=== PATIENT | male | born 1990 | race Caucasian/White ===

== ENCOUNTER 2019-09-15 19:26 | Emergency (ER) | payer OTHER ==
[~2019-09-15] VITALS: Ht 180.3 cm; Wt 88.5 kg
[2019-09-15 19:35] VITALS: BP 120/89
--- NOTE | 2019-09-15 19:35 | NUR ---
ED Nurse Note: Pt walked into ED from home for c/o laceration to R index finger. Pt states he was using his pocket knife and when he went to close it, it cut his finger. Pt does not want to harm himself. Pt is aaox4, breathing is normal and unlabored, NAD. Pt reports pain to the finger. Laceration to R index finger noted, no active bleeding.
[2019-09-15] MEDS ORDERED: Tetanus/Diptheria/Pertussis IM ONE (19:45)
--- NOTE | 2019-09-15 20:30 | NUR ---
ED Nurse Note: ERMD bedside for lac repair.
[2019-09-15] MEDS ORDERED: BACITRACIN15 GM TOPIC (20:53)
[2019-09-15 21:00] VITALS: BP 125/92
[2019-09-15] MEDS ORDERED: Bacitracin Oint UD TOPIC ONE (21:00)
--- NOTE | 2019-09-15 21:00 | NUR ---
ER DISCHARGE NOTE: Patient is cleared to be discharged per ERMD, pt is aox4, on room air, with stable vital signs. pt was given dc and prescription instructions, pt was able to verbalize understanding, pt id band removed. pt is able to ambulate with steady gait. pt took all belongings.
--- NOTE | 2019-09-19 07:27 | Emergency Room Report ---
History of Present Illness General Chief Complaint: Laceration Source: Patient Present Illness HPI 29-year-old male presents the ED with laceration to finger. Happened today while using a pocket knife.. Tetanus unknown. Denies pain. States bleeding controlled with pressure. Denies any other injuries. No other aggravating relieving factors. Denies any other associated symptoms Allergies: Coded Allergies: No Known Allergies (Unverified , 09/15/19) COVID-19 Screening Contact w/high risk pt: No Recent Travel to affected area: No Experienced COVID-19 symptoms?: No COVID-19 Testing performed NURSERY HAND: No Patient History Past Medical History: none Past Surgical History: none Pertinent Family History: none Social History: Denies: smoking, alcohol use, drug use Immunizations: UTD Reviewed Nursing Documentation: PMH: Agreed; PSxH: Agreed Nursing Documentation-PMH Past Medical History: No Stated History Review of Systems All Other Systems: negative except mentioned in HPI Physical Exam Vital Signs Date Time Temp Pulse Resp B/P (MAP) Pulse Ox O2 Delivery O2 Flow Rate FiO2 09/15/19 19:30 99.0 75 17 120/89 (99) 98 Sp02 EP Interpretation: reviewed, normal General Appearance: no apparent distress, alert, GCS 15, non-toxic Head: normocephalic Eyes: bilateral eye normal inspection, bilateral eye PERRL ENT: normal ENT inspection Neck: normal inspection Respiratory: normal inspection Cardiovascular #1: normal inspection Gastrointestinal: normal inspection Rectal: deferred Genitourinary: no CVA tenderness Musculoskeletal: back normal, normal range of motion, gait/station normal, non- tender Neurologic: alert, motor strength/tone normal, oriented x3, sensory intact, responsive, speech normal Psychiatric: judgement/insight normal, memory normal, mood/affect normal, no suicidal/homicidal ideation Skin: laceration - 1.5 cm horizontal laceration to R index finger. no tendon involvement. no active bleeding Lymphatic: no adenopathy Procedures Laceration/Wound Repair Laceration/Wound Repair : Consent: Verbal Wound Location: upper extremity - R index finger Wound's Depth, Shape: linear Wound Explored: clean Betadine Prep?: Yes Anesthesia: 1% Lidocaine Wound Debrided: minimal Wound Repaired With: sutures Suture Size/Type: 4:0, proline Layer Closure?: No Sterile Dressing Applied?: Yes Splint Applied?: No Sling Applied?: No Patient Tolerated: Well Complications: None Medical Decision Making Diagnostic Impression: Primary Impression: Laceration ER Course Hospital Course 29-year-old M presents to ED s/p laceration R index finger using knife Clinical course Patient placed on stretcher. After initial history and physical I ordered tetanus shot. wound irrigated. Anesthesia provided with lidocaine. Laceration repaired w/o complication. Dressing applied. I discussed findings with patient. Safe for discharge close outpatient follow- up. I will provide referrals. Wound care instructions given Diagnosis - laceration Stable and discharged to home. wound Care instructions given. Followup with PMD in 10-14 days for suture removal. Return to ED if any signs of infection develop Last Vital Signs Date Time Temp Pulse Resp B/P (MAP) Pulse Ox O2 Delivery O2 Flow Rate FiO2 09/15/19 21:00 99.0 70 18 125/92 98 Status: improved Disposition: HOME, SELF-CARE Condition: Stable Scripts Bacitracin (Bacitracin) 28.4 Gm Oint...g. 1 APPLIC TOPIC THREE TIMES A DAY, #28.4 GM Prov: Dawson Bryant MD 09/15/19 Referrals: [facility],REFERRING (PCP) Patient Instructions: Laceration Care, Adult Additional Instructions: have sutures removed in 12-14 days. Dawson Bryant MD Sep 19, 2019 07:27
== END 2019-09-15 21:00 | disposition home or self-care (01) ==
LOC: EMR 19:54
DX: S61.210A Laceration without foreign body of right index finger without damage to nail, initial encounter (principal); Z23 Encounter for immunization; W26.0XXA Contact with knife, initial encounter; Y92.9 Unspecified place or not applicable
CPT/HCPCS: 12001; 90471; 90715; Z7502; 99283